=== PATIENT | male | born 1985 | race Caucasian/White ===

== ENCOUNTER 2021-03-24 03:45 | Emergency (ER) | payer OTHER, BC ==
[2021-03-24] MEDS: Ketorolac 30 MG/ML SDV IM ONE (04:34)
--- NOTE | 2021-03-24 04:38 | EDM.PDOC ---
ED HPI GENERAL MEDICAL PROBLEM - General Chief Complaint: General Stated Complaint: Fall, Right lateral rib pain Time Seen by Provider: 03/24/21 04:05 Source of Information: Reports: Patient History Limitations: Reports: No Limitations - History of Present Illness INITIAL COMMENTS - FREE TEXT/NARRATIVE: Patient states he was called out with a local power company secondary to power being off at his other location secondary to a tractor running over the power box in the field. Upon arrival the patient had to climb up in the tractor that was still running and upon getting out after turning it off he fell landing on the left side of his ribs against a planter. States he had intense pain at the time it is gotten somewhat better now rates it as a 6 sharp and stabbing on the right side of his ribs. He states it does hurt when he takes deep breath but he denies any cough or shortness of breath. He had no LOC or head injury and has no other complaints at this time Onset: Sudden Duration: Hour(s): Location: Reports: Chest Quality: Reports: Stabbing Severity: Moderate Worsens with: Reports: Breathing Associated Symptoms: Reports: No Other Symptoms Right lateral ribs Pain Score (Numeric/FACES): 8 - Related Data Allergies Allergy/AdvReac Type Severity Reaction Status Date / Time No Known Allergies Allergy Verified 03/24/21 04:26 Home Meds: Home Meds . [No Known Home Meds] 03/24/21 [History] ED ROS GENERAL - Review of Systems Review Of Systems: See Below Constitutional: Reports: No Symptoms HEENT: Reports: No Symptoms Respiratory: Reports: Pleuritic Chest Pain. Denies: No Symptoms, Shortness of Breath, Wheezing, Cough, Hemoptysis Cardiovascular: Reports: No Symptoms Endocrine: Reports: No Symptoms GI/Abdominal: Reports: No Symptoms : Reports: No Symptoms Musculoskeletal: Reports: No Symptoms Skin: Reports: Bruising Neurological: Reports: No Symptoms Psychiatric: Reports: No Symptoms Hematologic/Lymphatic: Reports: No Symptoms Immunologic: Reports: No Symptoms ED EXAM, GENERAL - Physical Exam Exam: See Below Exam Limited By: No Limitations General Appearance: Alert, WD/WN, No Apparent Distress Throat/Mouth: Normal Inspection, Normal Lips, Normal Teeth, Normal Gums, Normal Oropharynx, No Airway Compromise Head: No: Sinus Tenderness Neck: Normal Inspection, Supple, Non-Tender, Full Range of Motion Respiratory/Chest: No Respiratory Distress, Lungs Clear, Normal Breath Sounds, Other (There is approximately 5 cm of superficial ecchymosis/superficial abrasi on to the right lateral ribs with mild tenderness to palpation over the area there is no subcu emphysema noted). No: No Accessory Muscle Use, Chest Non- Tender Cardiovascular: Normal Peripheral Pulses, Regular Rate, Rhythm, No Edema, No Gallop, No JVD, No Murmur, No Rub GI/Abdominal: Normal Bowel Sounds, Soft, Non-Tender, No Organomegaly, No Disten tion Extremities: Normal Inspection, Normal Range of Motion, Non-Tender, No Pedal Edema, Normal Capillary Refill Neurological: Alert, Oriented, CN II-XII Intact, Normal Cognition, Normal Gait, No Motor/Sensory Deficits Psychiatric: Normal Affect, Normal Mood Skin Exam: Warm, Dry, Intact, Normal Color, No Rash Course - Vital Signs Text/Narrative:: Toradol 30 mg IV AP lateral chest x-ray Patient will be sent home with Robaxin 500 mg 1 p.o. every 8 hours #30 Toradol 10 mg 1 p.o. every 8 hours number of 15 Positive rib fracture on the lateral side #7 recheck patient states he feels a lot better after shot of Toradol he is okay with disposition going home he will be placed off work until Monday educated on ice deep breathing NSAIDs Last Recorded V/S: Last Vital Signs Temp 36.6 C 03/24/21 03:45 Pulse 75 03/24/21 03:45 Resp 14 03/24/21 03:45 BP 139/97 H 03/24/21 03:45 Pulse Ox 99 03/24/21 03:45 - Orders/Labs/Meds Orders: Active Orders 24 hr Category Date Time Status Chest 2V [CR] Stat Exams 03/24/21 04:29 Taken Meds: Medications Discontinued Medications Generic Name Dose Route Start Last Admin Trade Name Freq PRN Reason Stop Dose Admin Ketorolac Tromethamine 30 mg 03/24/21 04:28 03/24/21 04:34 Ketorolac 30 Mg/Ml Sdv IM 03/24/21 04:29 30 mg ONETIME ONE Administration Departure - Departure Time of Disposition: 05:00 Disposition: Home, Self-Care 01 Condition: Good Clinical Impression: Rib fracture - Discharge Information *PRESCRIPTION DRUG MONITORING PROGRAM REVIEWED*: No *COPY OF PRESCRIPTION DRUG MONITORING REPORT IN PATIENT MACK: No Referrals: PCP,None [Primary Care Provider] - Forms: ED Department Discharge Sepsis Event Note (ED) - Evaluation Sepsis Screening Result: No Definite Risk - Focused Exam Vital Signs: Vital Signs Temp Pulse Resp BP Pulse Ox 03/24/21 03:45 36.6 C 75 14 139/97 H 99 - Problem List & Annotations (1) Rib fracture SNOMED Code(s): 00227913 Code(s): S22.39XA - FRACTURE OF ONE RIB, UNSP SIDE, INIT FOR CLOS FX Status: Acute Current Visit: Yes - My Orders Last 24 Hours: My Active Orders 03/24/21 04:29 Chest 2V [CR] Stat - Assessment/Plan Last 24 Hours: My Active Orders 03/24/21 04:29 Chest 2V [CR] Stat
[2021-03-24] MEDS: Orphenadrine 100 MG Tab.ER PO SCH (05:17)
--- NOTE | 2021-03-24 08:03 | CR ---
[id number] RAD/RAD Chest PA And Lateral EXAM: RAD Chest PA And Lateral INDICATION: RIB INJURY, RIGHT MID RIB PAIN FROM FALL COMPARISON: None. DISCUSSION/IMPRESSION: Cardiomediastinal silhouette is normal in size and contour. Lungs demonstrate hyperinflation but are clear. No pleural effusion or pneumothorax. No visible rib fracture. Isrrael Moraes MD 03/24/21 0801 Thank you for allowing us to participate in the care of your patient.
== END 2021-03-24 05:22 | disposition home or self-care (01) ==
LOC: VM.ED 03:45
DX: S22.31XA Fracture of one rib, right side, initial encounter for closed fracture (principal); W17.89XA Other fall from one level to another, initial encounter
CPT/HCPCS: 71046; 96372; 99283-25; A9270-GY; J1885